=== PATIENT | female | born 2000 | race Caucasian/White ===

== ENCOUNTER 2018-02-01 18:43 | Emergency (ER) | END 2018-02-01 21:19 | disposition home or self-care (01) ==

== ENCOUNTER 2018-08-03 20:47 | Emergency (ER) | END 2018-08-03 23:15 | disposition home or self-care (01) ==

== ENCOUNTER 2018-11-01 18:32 | Outpatient (CLI) | payer MEDICAID ==
[~2018-11-01] VITALS: Ht 162.6 cm; Wt 84.7 kg
[~2018-11-01 18:32] MED LIST: ACET500C5 PO; CEPH-443 PO; DICY10CA40 PO; ONDA4TAB8 PO
[2018-11-01] MEDS ORDERED: PREN-93 PO (18:49)
[2018-11-01 18:50] VITALS: BP 119/56; PULSE 96; RESP 18
[2018-11-01 18:51] VITALS: Ht 162.6 cm; Wt 84.7 kg
--- NOTE | 2018-11-01 23:27 | TRIAGE ---
OB Triage Datetime Report Generated by CPN: 11/01/2018 23:27 Datetime: 11/01/2018 19:13 Pain Assessment Pain Scale: 0 Pain Presence: None/Denies Pain Type: N/A Datetime: 11/01/2018 18:47 Assessment Type: Triage Maternal Assessment Level of Consciousness: Fully Conscious DTR's/Clonus: DTRs 2+; No Clonus Headache: Denies Blurred Vision: No Respiratory Effort: Unlabored; Regular Rhythm; Equal Expansion Breath Sounds, Left: Clear and Equal Breath Sounds, Right: Clear and Equal Nausea/Vomiting: Denies RUQ Epigastric Pain: Denies Lower Extremities Edema: None Degree: None Upper Extremities Edema: None Degree: None Facial Edema: None Fall Risk Assessment History of Falling: (0) No Secondary Diagnosis: (0) No Ambulatory Aid: (0) Bedrest/Nurse Assist IV Therapy: (0) No Gait: (0) Normal/Bedrest/Immobile Mental Status: (0) Oriented to Own Ability Fall Score: 0 Fall Risk Score Definition: No Risk: No action required Datetime: 11/01/2018 18:45 Time of Arrival: 11/01/2018 18:20 EGA: 28.6 Arrived By: Ambulatory Arrived From: Home Chief Complaint: pt. here c/o VAG. SPOTTING SINCE YESTERDAY Movement: Present Contractions: Denies/Absent Rupture of Membranes: Denies Vaginal Bleeding: None Vaginal Discharge: Denies Recent Sexual Intercouse: Denies Abdominal Trauma: Not Applicable Patient Complaints: None Provider Notified: ESHAGHIAN Initial Plan: CEFM Datetime: 11/01/2018 18:44 Labor Evaluation Monitor Mode: External Heart Rate Monitor Mode: External US
--- NOTE | 2018-11-02 05:18 | PN ---
Triage Information Date/Time Reason for visit: Vaginal spotting when she wiped Weeks of Gestation 28 weeks and 6 days /Para Diabetes: none Hypertention: none Objective Vital Signs Date Temp Pulse Resp B/P (MAP) Pulse Ox O2 O2 Flow FiO2 Time Delivery Rate 11/01/18 98.6 96 18 119/56 Room Air 18:50 (77) Heart Rate: 130's Contractions: None Results/Medications Results 24 hrs Laboratory Tests Test 11/01/18 18:40 Urine Color YELLOW Urine Clarity CLOUDY A Urine pH 7.0 Urine Specific [place] 1.016 Urine Ketones NEGATIVE Urine Nitrite NEGATIVE Urine Bilirubin NEGATIVE Urine Urobilinogen NEGATIVE Urine Leukocyte Esterase 3+ H Urine Microscopic RBC 4 Urine Microscopic WBC > 182 H Urine Squamous Epithelial Cells MODERATE Urine Bacteria FEW A Urine Hemoglobin 3+ H Urine Glucose NEGATIVE Urine Total Protein NEGATIVE Imaging Results Single intrauterine gestation. There is a cephalic presentation. Measurements were made in order to determine age. The results are as follows: BPD = 30 weeks 4 day(s) HC = 30 weeks 4 day(s) AC = 28 weeks 6 day(s) FL = 28 weeks 6 day(s) JAYDEN (cm) = 16.3 Heart rate = 133 beats per minute The placenta is posterior. There is no evidence for an abruption or placenta previa. Cervix is closed measuring 3.1 cm as visualized transvaginally. Ovaries are not visualized. IMPRESSION: Single intrauterine gestation of approximately 29 weeks 5 days by ultrasound criteria. [place] estimated weight = 1342 g; 47 percentile for gestational age of 28 weeks 6 days. Disposition: Discharge Assessment/Plan 18 years old with single intrauterine at 28 weeks and 6 days with a RUBIN of 01/18/2019 complaining of vaginal spotting when she wiped herself. She states good movement. She denies nausea, vomiting, shortness of breath, chest pain, headache, visual changes or LOF. Her exam was unremarkable. Speculum exam performed, there was minimal brownish discharge, no active bleeding or spotting was seen. - heart rate category 1 - She has no uterine contraction -Rh is positive -Urinalysis within normal limits -Ultrasound performed, normal cervical length and amniotic fluid -Sign and symptom of labor,. Clamps ER, kick count discussed in detail with patient. She expressed understanding. All of her questions answered. She discharged home in stable condition With follow-up with her primary OB in 1-2 days. I strongly recommend come back to triage if she is experiencing any vaginal bleeding or with any concerns. VAISHALI TALBOT Nov 02, 2018 05:18
== END 2018-11-01 23:20 | disposition home or self-care (01) ==
LOC: OBT 18:32 → L-D 18:35 → OBT 23:20
PROVIDERS: ATTEND Obstetrics & Gynecology
DX: O46.8X2 Other antepartum hemorrhage, second trimester (principal); Z3A.28 28 weeks gestation of pregnancy
CPT/HCPCS: 76815; 76817; 81001; 86900; 86901; Z7500; G0463

== ENCOUNTER 2019-01-18 09:00 | Inpatient (IN) | payer MEDICAID ==
[~2019-01-18] VITALS: Ht 160 cm; Wt 89.6 kg
[~2019-01-18 09:00] MED LIST changes: -ACET500C5 PO; -CEPH-443 PO; -DICY10CA40 PO; -ONDA4TAB8 PO; +PREN-93 PO
[2019-01-18 11:28] VITALS: Ht 160 cm; Wt 89.6 kg
[2019-01-18 11:29] VITALS: BP 115/65; PULSE 90; RESP 20
[2019-01-18] MEDS ORDERED: MISOPROSTOL 200 MCG TAB PR PRN ×2 (11:30→12:00)
[2019-01-18] MEDS ORDERED: OXYTOCIN 30 UNITS/LR 500 ML IV SCH ×4 (11:30→12:00)
[2019-01-18] MEDS ORDERED: BUTORPHANOL 2 MG INJ IV PRN ×2 (11:30)
[2019-01-18] MEDS ORDERED: MISOPROSTOL 50 MCG CAPSULE VAG ONE ×3 (11:30→12:30)
[2019-01-18] MEDS ORDERED: METHYLERGONOVINE 0.2 MG INJ IM PRN ×2 (11:30→12:00)
[2019-01-18] MEDS ORDERED: LIDOCAINE 1% (MPF) 30 ML INJ INJ PRN ×2 (11:30→12:00)
[2019-01-18] MEDS ORDERED: OXYTOCIN 30 UNITS/LR 500 ML IV PRN ×2 (11:30→12:00)
[2019-01-18] MEDS ORDERED: IBUPROFEN 600 MG TAB PO PRN (11:30)
[2019-01-18] MEDS ORDERED: CARBOPROST 250 MCG INJ IM PRN ×2 (11:30→12:00)
[2019-01-18] MEDS: LACTATED RINGER'S 1,000 ML IV SCH ×2 (12:55→17:33)
[2019-01-18] MEDS: OXYTOCIN 30 UNITS/LR 500 ML IV SCH (12:57)
[2019-01-19] MEDS: LACTATED RINGER'S 1,000 ML IV SCH ×3 (01:32→18:54)
--- NOTE | 2019-01-19 09:04 | PREOPHP ---
DATE OF ADMISSION: 01/18/2019 HISTORY OF PRESENT ILLNESS: Ms. Arlette Lowe is a 18-year-old 2, para 0, EDC 9, intrauterine at 40 weeks' gestational age, admitted today for induction. She denies any contractions, vaginal bleeding, or discharge. Her care took place at [facility]. MEDICAL HISTORY: None. MEDICATIONS: vitamins. PAST SURGICAL HISTORY: None. OBSTETRICAL HISTORY: Missed AB x1. GYNECOLOGIC HISTORY: Twelve, regular 3 to 4 days. Denies any sexually transmitted infections. Sexu ally active with 1 partner. SOCIAL HISTORY: Denies any smoking, drugs or alcohol. FAMILY HISTORY: None. REVIEW OF SYSTEMS: All within normal except history of present illness. PHYSICAL EXAMINATION: HEENT: Within normal. LUNGS: CTA bilateral. CARDIOVASCULAR: S1, S2, regular rhythm. ABDOMEN: Gravid, nontender. Negative CVA bilateral. EXTREMITIES: Negative calf tenderness. PELVIC: Vaginal exam 2 cm dilated, 50% effaced, -3 station. heart tracing category 1. T[address] ter: Occasional contractions. ASSESSMENT: Intrauterine at 40 weeks' gestational age, admitted for induction with Pitocin . PLAN: Admit patient. Ultrasound for EFW followed by Pitocin. Risks, benefits and alternatives expl ained. All questions were answered. Dictated By: JEANA HERNANDEZ/WILDER Conf#: [id number] DID#: [id number]
--- NOTE | 2019-01-19 13:48 | PREAC ---
Date/Time of Note Date/Time of Note DATE: 01/19/19 TIME: 13:46 Anesthesia Eval and Record Evaluation Time Pre-Procedure Interview DATE: 01/19/19 TIME: 13:46 Age 18 Sex female NPO: 8 hrs Preoperative diagnosis intrauterine Planned procedure labor epidural Past Medical History Past Medical History: Includes : : (2), Para: (0), Gestational age: (40.1) Surgery & Anesthesia Issues No known issue Meds Anticoagulation: No Beta Michelle within 24 hr: No Reason Beta Michelle not given: Pt. not on B-Michelle Reported Medications Vit No.124/Iron/FA ( Vitamin Tablet) 1 Each Tablet, 1 EACH PO DAILY, TAB 11/01/18 Current Medications Butorphanol Tartrate (Stadol) 1 mg Q2H PRN IV .PAIN SCALE 1-5; Start 01/18/19 at 11:30 Butorphanol Tartrate (Stadol) 2 mg Q2H PRN IV .PAIN SCALE 6-10; Start 01/18/19 at 11:30 Lidocaine (Xylocaine 1% (Mpf)) 30 ml ONCE PRN INJ .EPISIOTOMY; Start 01/18/19 at 11:30 Oxytocin/Lactated Ringer's 500 ml @ 500 mls/hr ONCE POST IV ; Start 01/18/19 at 11:30 Ibuprofen (Motrin) 600 mg ONCE PRN PO .PAIN 1-5; Start 01/18/19 at 11:30 Oxytocin/Lactated Ringer's 500 ml @ 0 mls/hr ONCE PRN IV .VAGINAL BLEEDING; Start 01/18/19 at 11:30 Methylergonovine Maleate (Methergine) 0.2 mg ONCE PRN IM .VAGINAL BLEEDING; Start 01/18/19 at 11:30 Carboprost Tromethamine (Hemabate) 250 mcg ONCE PRN IM .VAGINAL BLEEDING; Start 01/18/19 at 11:30 Misoprostol (Cytotec) 1,000 mcg ONCE PRN WA .VAGINAL BLEEDING; Start 01/18/19 at 11:30 Oxytocin/Lactated Ringer's 500 ml @ 0 mls/hr Q0M IV Last administered on 01/18/19at 12:57; Admin Dose 1 MLS/HR; Start 01/18/19 at 12:30 Lactated Ringer's 1,000 ml @ 125 mls/hr Q8H IV Last administered on 01/19/19at 01:32; Admin Dose 125 MLS/HR; Start 01/18/19 at 12:30 Meds reviewed: Yes Allergies Coded Allergies: No Known Drug Allergies (Verified Allergy, Unknown, 01/18/19) Allergies Reviewed: Yes Labs/Studies Labs Reviewed: Reviewed by anesthesiologist Result Diagram: 01/18/19 1200 test: N/A Pre-procedure Exam Last vitals Vital Signs Date Temp Pulse Resp B/P (MAP) Pulse Ox O2 O2 Flow FiO2 Time Delivery Rate 01/18/19 98.0 90 20 115/65 11:29 (82) Airway: Adequate mouth opening, Adequate thyromental dist Mallampati: Mallampati II Teeth: Normal Lung: Normal Heart: Normal ASA Physical Status ASA physical status: 2 Emergency: None Planned Anesthetic Neuraxial: Epidural Planned Pain Management Epidural, Parenteral pain med Pre-operative Attestations Prior to commencing anesthesia and surgery, the patient was re-evaluated, there was verification of: *The patient's identity *The results of appropriate recent lab work and preoperative vital signs *The above evaluation not changing prior to induction *Anesthetic plan, risk benefits, alternative and complications discussed with patient/family; questions answered; patient/family understands, accepts and wishes to proceed. SILVIA JEFF MD January 19, 2019 13:48
[2019-01-19] MEDS ORDERED: DIPHENHYDRAMINE 50 MG INJ IV PRN (14:00)
[2019-01-19] MEDS ORDERED: FENTAnyl 2MCG/ML-ROPIV 0.2% 100 ML BAG EPI SCH (14:00)
[2019-01-19] MEDS ORDERED: ONDANSETRON 4 MG INJ IV PRN ×2 (14:00→23:30)
[2019-01-19] MEDS ORDERED: NALOXONE (0.4 MG/ML) INJ IV PRN (14:00)
--- NOTE | 2019-01-19 15:05 | PAC ---
Date/Time of Note Date/Time of Note DATE: 01/19/19 TIME: 15:04 Post-Anesthesia Notes Post-Anesthesia Note Last documented vital signs Vital Signs Date Temp Pulse Resp B/P (MAP) Pulse Ox O2 O2 Flow FiO2 Time Delivery Rate 01/18/19 98.0 90 20 115/65 11:29 (82) Activity: WNL Respiratory function: WNL Cardiovascular function: WNL Mental status: Baseline Pain reasonably controlled: Yes Hydration appropriate: Yes Nausea/Vomiting absent: Yes Comments BP: 110/62 HR: 84 RR: 15 T: 98 SaO2: 100% SILVIA JEFF MD January 19, 2019 15:05
[2019-01-19] MEDS: OXYTOCIN 30 UNITS/LR 500 ML IV SCH (18:58)
[2019-01-19] MEDS ORDERED: AMPICILLIN 2 GM/NS (PMX) 100 ML IV ONE (20:30)
[2019-01-19] MEDS ORDERED: OXYTOCIN 30 UNITS/LR 500 ML IV SCH (23:25)
--- NOTE | 2019-01-19 23:25 | LDN ---
Date/Time of Note Date/Time of Note DATE: 01/19/19 TIME: 23:24 Delivery Summary Weeks of Gestation 40 Placenta Delivered: Spontaneously Meconium: none Episiotomy: Yes Laceration repair: rmle repair with 2-0 and 3-0 chromic Anesthesia type: Epidural Estimated blood loss: 300 Sponge & Needle done & correct: Yes All needle counts correct: Yes Any foreign bodies felt in the: No Delivery Information Sex Sex: male Apgars 1 Minute: 9 5 Minute: 9 Suctioning Nose & mouth suctioned at nona: No Delee suction performed: No Umbilical Cord Umbilical cord with: 3 Vessels Cord presentations: no nuchal cord Cord Blood was obtained: Yes JEANA REHMAN MD January 19, 2019 23:24
[2019-01-19] MEDS ORDERED: NACL 0.9% 3 ML SYG IV SCH (23:30)
[2019-01-19] MEDS ORDERED: MISOPROSTOL 200 MCG TAB PR PRN (23:30)
[2019-01-19] MEDS ORDERED: OXYTOCIN 30 UNITS/LR 500 ML IV PRN (23:30)
[2019-01-19] MEDS ORDERED: METHYLERGONOVINE 0.2 MG INJ IM PRN (23:30)
[2019-01-19] MEDS ORDERED: OXYCODONE/ASPIRIN (4.88/325) TAB PO PRN ×2 (23:30)
[2019-01-19] MEDS ORDERED: BENZOCAINE 20% 56 ML SPRAY TOP PRN (23:30)
[2019-01-19] MEDS ORDERED: LANOLIN HPA 1 PKT TOP PRN (23:30)
[2019-01-19] MEDS ORDERED: CARBOPROST 250 MCG INJ IM PRN (23:30)
[2019-01-19] MEDS ORDERED: WITCH HAZEL/GLYCERIN PAD PR PRN (23:30)
[2019-01-20 00:25] VITALS: BP 127/73; PULSE 101; RESP 18
[2019-01-20] MEDS ORDERED: AMPICILLIN 1 GM/NS (PMX) 50 ML IV SCH (00:30)
[2019-01-20] MEDS: IBUPROFEN 600 MG TAB PO SCH ×5 (01:21→23:38)
[2019-01-20 04:13] VITALS: BP 104/56; PULSE 104; RESP 18
[2019-01-20 08:10] VITALS: BP 108/53; PULSE 96; RESP 18
[2019-01-20] MEDS ORDERED: SENNA/DOCUSATE NA (8.6MG/50MG) TAB PO SCH (09:00)
[2019-01-20 15:45] VITALS: BP 120/75; PULSE 91; RESP 18
--- NOTE | 2019-01-20 18:37 | PD.PPDC ---
SUPERMARKET MANAGER Discharge Instruction Condition [id number] Patient Condition: [id number] Good Diet Ihbxb9Np Diet: Ivyli4b Resume Regular Diet Activity/Restrictions [id number] Activity: Owein4b Normal Activity May Shower [id number] Restrictions: Ineys5f No Exercising No Lifting No Driving No Sexual Activity Nothing in the Vagina No [place] No Tampons, douche Follow-up Follow-up with Physician: 3, Week/Weeks Return to clinic for [id number] [employer] Instructions: [id number] Fever greater than 101 Chills Worsening abdominal pain Excessive Vaginal Bleeding More than 2 pads per hour Unable to tolerate diet [id number] OB Instructions: Ijmek4o Breast Tenderness Depression Blurried Vision Headache [id number] Surgical Instructions: [id number] Incisional Drainage Incisional Redness JEANA REHMAN MD January 20, 2019 18:37
--- NOTE | 2019-01-20 18:40 | DS ---
Date/Time of Note Date/Time of Note DATE: 01/20/19 TIME: 18:39 Obstetrical Discharge Record Final Diagnosis Final Diagnosis: Term delivered Vaginal Delivery Obstetrical Delivery: Spontaneous, Episiotomy, Repaired Condition on Discharge Physical Assessment Last Vitals: stable afebrile Voiding: Yes Bowel Movement: Yes Breast: Soft, non-tender, Filling Fundus: Firm Abdomen and Incision: soft nt Calf Tenderness: No Patient Condition: Fair JEANA REHMAN MD January 20, 2019 18:40
[2019-01-20] MEDS: SENNA/DOCUSATE NA (8.6MG/50MG) TAB PO PRN (19:56)
[2019-01-20] MEDS: GUAIFENESIN/DM 5ML CUP PO PRN (19:56)
[2019-01-20 20:15] VITALS: BP 112/59; PULSE 95; RESP 20
[2019-01-21 03:53] VITALS: BP 109/68; PULSE 73; RESP 18
[2019-01-21] MEDS: IBUPROFEN 600 MG TAB PO SCH (05:29)
[2019-01-21] MEDS: GUAIFENESIN/DM 5ML CUP PO PRN (05:36)
[2019-01-21 07:30] VITALS: BP 109/69; PULSE 89; RESP 17
[2019-01-21] MEDS: SENNA/DOCUSATE NA (8.6MG/50MG) TAB PO PRN (09:44)
--- NOTE | 2019-01-22 12:18 | DELSUM ---
Delivery Summary A-C Datetime Report Generated by CPN: 01/22/2019 12:18 DELIVERY PERSONNEL Grab Driver: Debby Sharma MATERNAL INFORMATION Delivery Anesthesia: Epidural Medications in Delivery: 30 UNITS PITOCIN IN 500ML LR Delivery QBL (ml): 300 Placenta Cultured: No Maternal Complications: None Other Maternal Complications: POST DATE LABOR SUMMARY EDC: 01/18/2019 00:00 No. Babies in Womb: 1 Attempted: No Labor Anesthesia: Epidural LABOR INFORMATION Reason for Induction: Postterm Onset of Labor: 01/19/2019 07:41 Complete Dilatation: 01/19/2019 21:50 Oxytocin: Induction Group B Beta Strep: Negative Antibiotics # of Doses: X1 2G AMP Antibiotics Time of Last Dose: 01/19/2019 20:30 Steroids Given: None Reason Steroids Not Administered: Not Applicable MEMBRANES Membranes Rupture Method: Artificial Rupture of Membranes: 01/19/2019 10:56 Length of Rupture (hr): 12.13 Amniotic Fluid Color: Clear Amniotic Fluid Amount: Small Amniotic Fluid Odor: Normal STAGES OF LABOR Stage 1 hr: 14 Stage 1 min: 9 Stage 2 hr: 1 Stage 2 min: 14 Stage 3 hr: 0 Stage 3 min: 3 Total Time in Labor hr: 15 Total Time in Labor min: 26 VAGINAL DELIVERY Episiotomy: Right Mediolateral Laceration Extension: N/A Laceration Type: None Laceration Repair: Yes Initial Vag Sponge Count: 10 Final Vag Sponge Count: 10 Initial Vag Sharps Count: 1 Final Vag Sharps Count: 4 Sponge Count Correct: Yes; Vaginal Sweep Performed Sharps Count Correct: Yes CSECTION DELIVERY Primary Indication: N/A Secondary Indication: N/A CSection Urgency: N/A CSection Incidence: N/A Labor: N/A Elective: N/A BABY A INFORMATION Delivery Date/Time: 01/19/2019 23:04 Method of Delivery: Vaginal Born in Route : No : N/A Forceps: N/A Vacuum Extraction: N/A Shoulder Dystocia : N/A SHOULDER DYSTOCIA BABY A Infant Delivery Date/Time: 01/19/2019 23:04 PRESENTATION/POSITION BABY A Presentation: Cephalic Cephalic Presentation: Vertex Vertex Position: Right Occipital Anterior Breech Presentation: N/A PLACENTA INFORMATION BABY A Placenta Delivery Time : 01/19/2019 23:07 Placenta Method of Delivery: Expressed Placenta Status: Delivered SCORES BABY A Heart Rate 1 min: >100 bpm Resp Effort 1 min: Good Cry Reflex Irritability 1 min: Cough/Sneeze/Pulls Away Muscle Tone 1 min: Active Motion Color 1 min: Body [place], Extremit Blue Resuscitation Effort 1 min: Tactile Stimulation SCORE 1 MIN: 9 Heart Rate 5 min: >100 bpm Resp Effort 5 min: Good Cry Reflex Irritability 5 min: Cough/Sneeze/Pulls Away Muscle Tone 5 min: Active Motion Color 5 min: Body [place], Extremit Blue Resuscitation Effort 5 min: Tactile Stimulation SCORE 5 MIN: 9 INFORMATION BABY A Gestational Age at Delivery: 40.1 Gestational Status: Full Term- 39- 40.6 Weeks Infant Outcome : Liveborn Condition : Stable Infant Sex: Male IDENTIFICATION/MEDS BABY A ID Band Number: [id number] ID Band Location: Right Leg; Left Arm Sensor Applied: Yes Sensor Number: [id number] Sensor Location : Cord Clamp Vitamin K Given : Not Given Erythromycin Given: Not Given WEIGHT/LENGTH BABY A Infant Birthweight (gm): 3905 Infant Weight (lb): 8 Infant Weight (oz): 10 Length (in): 20.50 Infant Length (cm): 52.07 CORD INFORMATION BABY A No. 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
== END 2019-01-21 12:18 | disposition home or self-care (01) | DRG 807 ==
LOC: L-D 09:36 → PP1 01-20 00:30
PROVIDERS: ADMIT Obstetrics & Gynecology; ATTEND Obstetrics & Gynecology
PROC: 3E033VJ Introduction of Other Hormone into Peripheral Vein, Percutaneous Approach (ICD-10-PCS; 2019-01-18)
PROC: 10E0XZZ Delivery of Products of Conception, External Approach (ICD-10-PCS; principal; 2019-01-19)
PROC: 0W8NXZZ Division of Female Perineum, External Approach (ICD-10-PCS; 2019-01-19)
DX: O80 Encounter for full-term uncomplicated delivery (principal); Z37.0 Single live birth; Z3A.40 40 weeks gestation of pregnancy
CPT/HCPCS: 62322; 76815; 85025; 85048; 85610; 85730; 86592; 86850; 86900; 86901; 87340; J0290; J2210; J2590; J3010; J7120